=== PATIENT | female | born 1995 | race Hispanic/Latino ===

== ENCOUNTER 2021-09-01 19:55 | Emergency (ER) | payer BC ==
[2021-09-01 21:31] LABS: Basophils % (Auto) 0.2 % (0.0-1.8); Eosinophils % (Auto) 0.5 % (0.0-4.3); Hematocrit 42.1 % (30.3-42.9); Hemoglobin 14.1 gm/dl (10.1-14.3); Lymphocytes % (Auto) 13.2 % (13.4-35.0); Mean Corpuscular HGB Conc 34 % (30-34); Mean Corpuscular Volume 94 fl (79-97); Monocytes # (Auto) 0.3 K/mm3 (0.0-0.8); Monocytes % (Auto) 4.5 % (0.0-7.3); Platelet Count 202 K/mm3 (140-440); Red Cell Distribution Width 13.2 % (13.2-15.2)
[2021-09-01 21:43] LABS: Bilirubin,Urine NEG (Negative); Blood,Urine LG (Negative); Calcium Oxalate Crystals,Urine 1+; Color,Urine Yellow (Yellow); Mucus,Urine 3+ /HPF; Urobilinogen,Urine < 2.0 mg/dL (<2.0)
[2021-09-01 21:47] LABS: RBC,Urine > 182.0 /HPF (0.0-6.0)
[2021-09-01 21:54] LABS: Alanine Aminotransferase 8 units/L (7-56); Albumin 4.5 g/dL (3.9-5); Blood Urea Nitrogen 9 mg/dL (7-17); Calcium 8.8 mg/dL (8.4-10.2); Hemolysis Index 10
[2021-09-01 21:58] LABS: BUN/Creatinine Ratio 15
[2021-09-01] MEDS ORDERED: ONDANSETRON 4 MG/2 ML INJ IV ONE (22:00)
[2021-09-01] MEDS ORDERED: MORPHINE 4 MG/1 ML INJ IV ONE (22:00)
--- NOTE | 2021-09-01 23:12 | Cat Scan Report ---
CT ABDOMEN AND PELVIS WITH CONTRAST INDICATION / CLINICAL INFORMATION: RLQ abdominal pain. TECHNIQUE: Axial CT images were obtained through the abdomen and pelvis after 100 mL Omnipaque [address] scans at this location are performed using CT dose reduction for ALARA by means of automated exposure control. COMPARISON: None available. FINDINGS: LOWER CHEST: No significant abnormality. LIVER: No significant abnormality. GALLBLADDER: No significant abnormality. BILE DUCTS: No significant abnormality. PANCREAS: No significant abnormality. SPLEEN: No significant abnormality. ADRENALS: No significant abnormality. RIGHT KIDNEY / URETER: No significant abnormality. LEFT KIDNEY / URETER: No significant abnormality. STOMACH / SMALL BOWEL: No significant abnormality. COLON: No significant abnormality. APPENDIX: No significant abnormality. PERITONEUM: Small amount of free fluid in the pelvis is likely physiologic in this young female patie nt. No free air. No fluid collection. LYMPH NODES: No significant adenopathy. AORTA / ARTERIES: No significant abnormality. IVC / VEINS: No significant abnormality. URINARY BLADDER: No significant abnormality. REPRODUCTIVE ORGANS: No significant abnormality. ADDITIONAL FINDINGS: None. SKELETAL SYSTEM: No significant abnormality. IMPRESSION: 1. No acute process in the abdomen or pelvis. Normal appendix. 3. Small amount of free fluid in the pelvis likely physiologic in this young female patient. Signer Name: Vijaya Cleary MD Signed: 09/01/2021 11:07 PM Workstation Name: [id number]
--- NOTE | 2021-09-01 23:30 | Emergency Department Report ---
ED Abdominal Pain HPI - General Chief Complaint: Abdominal Pain Stated Complaint: ABD PAIN Source: EMS Mode of arrival: Ambulatory Limitations: No Limitations - History of Present Illness Initial Comments: Patient is a nulliparous 26-year-old female with no past medical history presents to the ED with complaint of acute onset persistent severe diffuse lower abdominal pain that radiates to the right lower quadrant area with nausea and vomiting and diarrhea for the last 6 hours. Patient states that she is currently on her menstrual cycle and although she usually experiences dysmenorrhea, she stated that this latest episode is worse. Patient denies dysuria, urinary frequency and urgency, vaginal discharge, low back pain, chest pain or shortness of breath, fever, chills, cough, dizziness, syncope or dyspareunia. MD Complaint: abdominal pain (suprapubic pain), other (nausea and vomiting; dysmenorrhea) -: Sudden, hour(s) (6) Location: RLQ, suprapubic Radiation: RLQ, suprapubic Migration to: no migration Severity: moderate Severity scale (0 -10): 6 Quality: cramping, aching, sharp Consistency: constant Improves With: nothing Worsens With: nothing Context: other (dysmenorrhea) Associated Symptoms: denies other symptoms, nausea, vomiting, diarrhea. denies: fever, chills, constipation, dysuria, hematochezia, melena, hematuria, anorexia, syncope - Related Data LMP Date: 08/30/21 Previous Rx's Medication Instructions Recorded Last Taken Type Ibuprofen [Motrin] 600 mg PO Q8H PRN #30 tablet 09/01/21 Unknown Rx Ondansetron [Zofran Odt] 4 mg PO Q6HR PRN #20 tab.rapdis 09/01/21 Unknown Rx traMADoL [Ultram] 50 mg PO Q6HR PRN #12 tablet 09/01/21 Unknown Rx Allergies Allergy/AdvReac Type Severity Reaction Status Date / Time No Known Allergies Allergy Verified 09/01/21 19:59 ED Review of Systems ROS: Stated complaint: ABD PAIN Other details as noted in HPI Constitutional: denies: chills, fever Eyes: denies: eye pain, eye discharge, vision change ENT: denies: ear pain, throat pain Respiratory: denies: cough, shortness of breath, wheezing Cardiovascular: denies: chest pain, palpitations Endocrine: no symptoms reported Gastrointestinal: abdominal pain (RLQ and suprapubic), nausea, vomiting, giovanni rrhea Genitourinary: abnormal menses (menstrual cycle). denies: urgency, dysuria, discharge Musculoskeletal: denies: back pain, joint swelling, arthralgia Skin: denies: rash, lesions Neurological: denies: headache, weakness, paresthesias Psychiatric: denies: anxiety, depression Hematological/Lymphatic: denies: easy bleeding, easy bruising ED Past Medical Hx - Past Medical History Previous Medical History?: No - Social History Smoking Status: Current Every Day Smoker Substance Use Type: Marijuana - Medications Home Medications: Home Medications Medication Instructions Recorded Confirmed Last Taken Type Ibuprofen [Motrin] 600 mg PO Q8H PRN #30 tablet 09/01/21 Unknown Rx Ondansetron [Zofran Odt] 4 mg PO Q6HR PRN #20 tab.rapdis 09/01/21 Unknown Rx traMADoL [Ultram] 50 mg PO Q6HR PRN #12 tablet 09/01/21 Unknown Rx ED Physical Exam - General Limitations: No Limitations General appearance: alert, in no apparent distress - Head Head exam: Present: atraumatic, normocephalic, normal inspection - Eye Eye exam: Present: normal appearance, PERRL, EOMI - ENT ENT exam: Present: normal exam, normal orophraynx, mucous membranes moist, TM's normal bilaterally, normal external ear exam - Neck Neck exam: Present: normal inspection, full ROM - Respiratory Respiratory exam: Present: normal lung sounds bilaterally. Absent: respiratory distress, wheezes, rales, rhonchi, chest wall tenderness, accessory muscle use, decreased breath sounds - Cardiovascular Cardiovascular Exam: Present: regular rate, normal rhythm, normal heart sounds. Absent: systolic murmur, diastolic murmur, rubs, gallop - GI/Abdominal GI/Abdominal exam: Present: soft, tenderness (Palpable right lower quadrant tenderness, no rebound or guarding), hyperactive bowel sounds. Absent: distended, guarding, rebound, normal bowel sounds, hypoactive bowel sounds - Bi-manual exam: Present: other (Pelvic exam deferred at this time) - Extremities Exam Extremities exam: Present: normal inspection, full ROM, normal capillary refill - Back Exam Back exam: Present: normal inspection, full ROM. Absent: tenderness, CVA tenderness (R), CVA tenderness (L), muscle spasm, paraspinal tenderness, vertebral tenderness - Neurological Exam Neurological exam: Present: alert, oriented X3, CN II-XII intact, normal gait, reflexes normal - Psychiatric Psychiatric exam: Present: normal affect, normal mood - Skin Skin exam: Present: warm, dry, intact, normal color. Absent: rash ED Course Vital Signs 09/01/21 09/01/21 19:59 22:06 Temperature 98.4 F Pulse Rate 86 Respiratory 18 18 Rate Blood Pressure 144/74 [Left] O2 Sat by Pulse 98 Oximetry ED Medical Decision Making - Lab Data Result diagrams: 09/01/21 21:05 09/01/21 21:05 - Radiology Data Radiology results: report reviewed, [place] [address] Cat Scan Report Signed Patient: KRISTYN GUIDO MR#: [id number] : 1995 Acct:[id number] Age/Sex: 26 / F ADM Date: 09/01/21 Loc: ED Attending Dr: Ordering Physician: ELIE MCCARTHY Date of Service: 09/01/21 Procedure(s): CT abdomen pelvis w con Accession Number(s): [id number] cc: ELIE MCCARTHY CT ABDOMEN AND PELVIS WITH CONTRAST INDICATION / CLINICAL INFORMATION: RLQ abdominal pain. TECHNIQUE: Axial CT images were obtained through the abdomen and pelvis after 100 mL Omnipaque [address] scans at this location are performed using CT dose reduction for ALARA by means of automated exposure control. COMPARISON: None available. FINDINGS: LOWER CHEST: No significant abnormality. LIVER: No significant abnormality. GALLBLADDER: No significant abnormality. BILE DUCTS: No significant abnormality. PANCREAS: No significant abnormality. SPLEEN: No significant abnormality. ADRENALS: No significant abnormality. RIGHT KIDNEY / URETER: No significant abnormality. LEFT KIDNEY / URETER: No significant abnormality. STOMACH / SMALL BOWEL: No significant abnormality. COLON: No significant abnormality. APPENDIX: No significant abnormality. PERITONEUM: Small amount of free fluid in the pelvis is likely physiologic in this young female patient. No free air. No fluid collection. LYMPH NODES: No significant adenopathy. AORTA / ARTERIES: No significant abnormality. IVC / VEINS: No significant abnormality. URINARY BLADDER: No significant abnormality. REPRODUCTIVE ORGANS: No significant abnormality. ADDITIONAL FINDINGS: None. SKELETAL SYSTEM: No significant abnormality. IMPRESSION: 1. No acute process in the abdomen or pelvis. Normal appendix. 3. Small amount of free fluid in the pelvis likely physiologic in this young female patient. Signer Name: Vijaya Cleary MD Signed: 09/01/2021 11:07 PM Workstation Name: [id number] Transcribed By: DT Dictated By: Ricardo Cleary MD Electronically Authenticated By: Ricardo Cleary MD Signed Date/Time: 09/01/212306 DD/ 04 TD/TT: Print Cancel - Medical Decision Making This is a nulliparous 26-year-old female with no past medical history presents to the ED with complaint of acute onset persistent severe diffuse lower abdominal pain that radiates to the right lower quadrant area with nausea and vomiting and diarrhea for the last 6 hours. Patient states that she is currently on her menstrual cycle and although she usually experiences dysmenorrhea, she stated that this latest episode is worse. In the ED, patient is alert and oriented x3 and is not in distress. Patient was treated in the ED with pain medications and antiemetics. Lab test results were reviewed and are all nonactionable. Abdomen pelvis CT scan with contrast showed no acute abnormalities. Based on the history and physical exam findings, lab test r esults and imaging reports, patient's symptoms are likely due to severe dysmenorrhea or other acute viral syndrome. On reevaluation, patient's pain is well controlled with medication. 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 - Differential Diagnosis Appendicitis; ovarian cyst; ; UTI; dysmenorrhea; kidney stones Critical care attestation.: If time is entered above; I have spent that time in minutes in the direct care of this critically ill patient, excluding procedure time. ED Disposition Clinical Impression: Acute bilateral lower abdominal pain, Nausea, vomiting and diarrhea, Severe dysmenorrhea Disposition: HOME / SELF CARE / HOMELESS Is pt being admited?: No Does the pt Need Aspirin: No Condition: Stable Instructions: Abdominal Pain (ED), Nausea and Vomiting, Adult, [id number], Dysmenorrhea, [id number], Abdominal Pain, Adult, [id number], Diarrhea, Adult, [id number] Additional Instructions: All lab test results are reviewed and are all nonactionable. Abdomen pelvis CT scanning with contrast showed no acute abnormalities in the abdomen and pelvis. 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 Therefore take medications as needed for pain, drink plenty of fluids, follow-up with your FL[employer] OPERATIONS COORDINATOR physician or primary care physician in 7 to 10 days for reevaluation. Return to the ED immediately if his symptoms get worse. Prescriptions: Ibuprofen [Motrin] 600 mg PO Q8H PRN #30 tablet PRN Reason: Pain traMADoL [Ultram] 50 mg PO Q6HR PRN #12 tablet PRN Reason: Pain Ondansetron [Zofran Odt] 4 mg PO Q6HR PRN #20 tab.rapdis PRN Reason: Nausea And Vomiting Referrals: FAVIO BLANCHARD MD [Staff Physician] - 3-5 Days [facility] [Provider Group] - 3-5 Days Time of Disposition: 23:32 Print Language: TAJIK
[2021-09-02 00:16] VITALS: BP 115/64
== END 2021-09-02 00:02 | disposition home or self-care (01) ==
LOC: ED 19:55
DX: N94.6 Dysmenorrhea, unspecified (principal); R10.30 Lower abdominal pain, unspecified; R11.2 Nausea with vomiting, unspecified; R19.7 Diarrhea, unspecified; F17.200 Nicotine dependence, unspecified, uncomplicated; F12.10 Cannabis abuse, uncomplicated
CPT/HCPCS: 36415; 74177; 80053; 81001; 83690; 84703; 85025; 96374; 96375; 99284; J2270; J2405; Q9967